=== PATIENT | female | born 2000 | race Caucasian/White ===

== ENCOUNTER 2020-09-08 21:53 | Emergency (ER) | payer BC ==
[2020-09-08 22:13] VITALS: BMI 18.8
[2020-09-08] MEDS ORDERED: SODIUM CHLORIDE 0.9% 500 ML INFUS.BAG IV ONE (22:56)
[2020-09-08 23:03] LABS: BASO % 0.5 % (0-2.0); EOS % 0.6 % (0-4.5); HEMATOCRIT 41.1 % (32.4-45.2); HEMOGLOBIN 13.3 GM/dL (10.7-15.3); LYMPH % 18.6 % (8-40); MCH 30.1 pg (25.7-33.7); MCHC 32.4 g/dl (32.0-36.0); MEAN PLT VOLUME 10.1 fl (7.5-11.1); MONO % 8.3 % (3.8-10.2); PLATELET COUNT 215 K/MM3 (134-434); RBC 4.42 M/mm3 (3.60-5.2); RDW 12.9 % (11.6-15.6)
[2020-09-08 23:41] LABS: POTASSIUM 3.8 mmol/L (3.5-5.1)
[2020-09-08 23:44] LABS: CALCIUM 8.8 mg/dL (8.5-10.1)
[2020-09-08 23:48] LABS: CREATININE 1.1 mg/dL (0.55-1.3)
[2020-09-08 23:49] LABS: BILIRUBIN,TOTAL 0.4 mg/dL (0.2-1)
[2020-09-08 23:58] LABS: COCAINE, UR NEGATIVE ng/ml (CUTOFF=300); OPIATES, URI NEGATIVE ng/ml (CUTOFF=300); URINE AMPHETAMINES NEGATIVE ng/ml (CUTOFF=500); URINE BENZODIAZEPINES NEGATIVE ng/ml (CUTOFF=200)
[2020-09-08 23:59] LABS: PHENCYCLIDINE,URINE NEGATIVE ng/ml (CUTOFF=25)
[2020-09-09] LABS: URINE BARBITURATES NEGATIVE ng/ml (CUTOFF=200)
[2020-09-09 00:02] LABS: METHADONE, UR NEGATIVE ng/ml (CUTOFF=300)
[2020-09-09 01:09] VITALS: BP 134/79; PULSE 95; TEMP 98.3
== END 2020-09-09 01:10 | disposition home or self-care (01) ==
LOC: JER 21:53
DX: R42 Dizziness and giddiness (principal)
CPT/HCPCS: 36415; 80053; 80307; 82375; 84703; 85025; 99284-25; C9803; U0003